=== PATIENT | female | born 1965 | race Two or more races ===

== ENCOUNTER 2018-10-06 13:54 | Emergency (ER) | payer BC ==
[2018-10-06] MEDS ORDERED: METHOCARBAMOL 750 MG TABLET PO ONE (14:41)
[2018-10-06] MEDS ORDERED: DEXAMETHASONE SOD PHOS INJ 10 MG/1 ML VIAL IM ONE (14:41)
[2018-10-06] MEDS ORDERED: LIDOCAINE 5% (700 MG) TRANSDERMAL ADH..PATCH TP ONE (14:42)
[2018-10-06] MEDS ORDERED: ACETAMINOPHEN 325 MG TABLET PO ONE (14:42)
--- NOTE | 2018-10-06 14:52 | ER Document Report ---
HPI - HPI Patient complains to provider of: back pain Time Seen by Provider: 10/06/18 14:15 Pain Level: 3 Context: 53-year-old female with history of cervical spine fusion and recent reconstructive knee surgery in July 2018 presents to the emergency department with chief complaint of acute back and leg pain. She says she got off of a lawnmower a couple weeks ago and initially injured it. She says she was getting around okay until yesterday when she developed acute pain and cannot stand up straight. She cannot bear weight on her right leg. She says she has shooting pains from her right gluteus down to her toes with associated numbness and tingling that is intermittent. She denies any urinary retention, bowel incontinence, saddle paresthesia, fevers, unilateral right leg swelling, denies OCP use, denies pain out of proportion to movement of the calf. No other complaints - REPRODUCTIVE Reproductive: DENIES: : Past Medical History - Social History Smoking Status: Never Smoker Family History: None Vertical Provider Document - CONSTITUTIONAL Notes: PHYSICAL EXAMINATION: Reviewed vital signs and charting by RN GENERAL: Alert, interacts well. No acute distress. HEAD: Normocephalic, atraumatic. EYES: Pupils equal and round. Extraocular movements intact. ENT: Oral mucosa moist, tongue midline. NECK: Full range of motion. Trachea midline. EXTREMITIES: Moves all 4 extremities spontaneously. No edema, No cyanosis. BACK: midline TTP cervical spine with reproducible radiculopathy to the left leg PSYCH: Normal affect, normal mood. SKIN: Warm, dry, normal turgor. No rashes or lesions noted. - INFECTION CONTROL TRAVEL OUTSIDE OF THE [place] IN LAST 30 DAYS: No Course - Re-evaluation Re-evalutation: 10/06/18 14:50 Appears in mild distress. Symptoms most consistent with disc pathology but patient did have midline tenderness to palpation of the C-spine so I will get a lumbar plain film as this is time she is ever had the symptoms. I am aggressively treating her pain at this time. She does take meloxicam daily and took some today so I am deferring giving her Toradol. 10/06/18 15:27 Lumbar spine shows spondylolysis but no concerning fracture dislocation. Patient with no red flags in interview. Patient was treated for symptomatic care. She is stable for discharge. - Vital Signs Vital signs: Temp Pulse Resp BP Pulse Ox 97.9 F 73 18 134/66 H 97 10/06/18 13:58 10/06/18 13:58 10/06/18 13:58 10/06/18 13:58 10/06/18 13:58 Discharge - Discharge Clinical Impression: Low back pain Condition: Good Disposition: HOME, SELF-CARE Additional Instructions: You have been seen in the Emergency Department (ED) today for back pain. Your workup and exam have not shown any acute abnormalities and you are likely suffering from muscle strain or possible problems with your discs, but there is no treatment that will fix your symptoms at this time. Please take your meloxicam daily and/or Tylenol every 6 hours for pain/inflammation. You should also purchase a local lidocaine cream such as "aspercreme with lidocaine" and use per bottle instructions to the affected area. Apply heat to the area as o ften as you are able. Continue to keep active and avoid prolonged periods of bed rest. Please follow up with your doctor as soon as possible regarding today's ED visit and your back pain. Return to the ED for worsening back pain, fever, weakness or numbness of either leg, or if you develop either (1) an inability to urinate or have bowel movements, or (2) loss of your ability to control your bathroom functions (if you start having "accidents"), or if you develop other new symptoms that concern you.concern you. Prescriptions: Methocarbamol [Robaxin 750 mg Tablet] 750 mg PO Q6 #20 tablet Referrals: AISSATOU DEUTSCH PA-C [ALLIED HEALTH PROFESSIONAL] - Follow up as needed
--- NOTE | 2018-10-06 15:16 | RADIOLOGY REPORT (SQ) ---
EXAM DESCRIPTION: L SPINE WHOLE COMPLETED DATE/TIME: 10/06/2018 3:03 pm REASON FOR STUDY: new onset LBP COMPARISON: None. NUMBER OF VIEWS: Five views including obliques. TECHNIQUE: AP, lateral, oblique, and sacral radiographic images acquired of the lumbar spine. LIMITATIONS: None. FINDINGS: MINERALIZATION: Normal. SEGMENTATION: Normal. No transitional anatomy. ALIGNMENT: Normal. VERTEBRAE: Maintained height. No fracture or worrisome bone lesion. DISCS: Multilevel disc space narrowing with osteophytes. POSTERIOR ELEMENTS: Pedicles and facets are intact. No pars defect or posterior arch defects. Facet arthropathy is present. HARDWARE: None in the spine. PARASPINAL SOFT TISSUES: Normal. PELVIS: Intact as visualized. No fractures or worrisome bone lesions. SI joints intact. OTHER: No other significant finding. IMPRESSION: SPONDYLOSIS WITHOUT BONE LESION OR FRACTURE. TECHNICAL DOCUMENTATION: JOB ID: [id number] [id number] [employer]- All Rights Reserved Reading location - IP/workstation name: [email or web address]
[2018-10-06] MEDS ORDERED: HYDROCODONE/ACETAMINOPHEN 5-325 MG (6 TAB/ER DISP) PO PRN (15:51)
[2018-10-06 16:35] VITALS: BP 111/68
== END 2018-10-06 16:10 | disposition home or self-care (01) ==
LOC: ER 13:54
DX: M54.5 Low back pain (principal); M54.9 Dorsalgia, unspecified; R20.0 Anesthesia of skin
CPT/HCPCS: 99283; 96372; 72110; J3490; J1100